=== PATIENT | female | born 1985 | race Caucasian/White ===

== ENCOUNTER 2017-08-17 17:38 | Emergency (ER) | payer OTHER ==
[2017-08-17 17:51] VITALS: BP 126/74; PULSE 100; TEMP 98.1; O2SAT 100
--- NOTE | 2017-08-17 18:27 | C.PDOC ---
History Of Present Illness SP FALL ON 08/12 CO PERSIST R ELBOW PAIN AND SWELLING. PERSIST PAIN WORSE W SUPINATION AND FLEXION. DENIES WEAK NUMB. EXAM NONTOXIC EXT R ELBOW +SWELLING LIMITED ROM REPRODUC PAIN W SUPINATION. SKIN INTACT NO ERYTHEMA NEURO INTACT REMAINDER NEG Time Seen by Provider: 08/17/17 17:45 Chief Complaint (Nursing): Upper Extremity Problem/Injury History Per: Patient History/Exam Limitations: no limitations Onset/Duration Of Symptoms: Days Current Symptoms Are (Timing): Still Present Severity: Moderate Past Medical History Reviewed: Historical Data, Nursing Documentation, Vital Signs Vital Signs: Last Vital Signs Temp 98.1 F 08/17/17 17:49 Pulse 100 H 08/17/17 17:49 Resp 17 08/17/17 18:50 BP 126/74 08/17/17 17:49 Pulse Ox 100 08/17/17 18:32 - Medical History PMH: No Chronic Diseases Surgical History: No Surg Hx Family History: States: No Known Family Hx - Social History Hx Alcohol Use: No Hx Substance Use: No - Immunization History Hx Tetanus Toxoid Vaccination: No Hx Influenza Vaccination: No Hx Pneumococcal Vaccination: No Review Of Systems Except As Marked, All Systems Reviewed And Found Negative. Musculoskeletal: Positive for: Arm Pain (right elbow pain) Neurological: Negative for: Weakness, Numbness Physical Exam - Physical Exam Appears: Non-toxic Skin: Normal Color, Warm, Other (intact, no erythema) Head: Atraumatic, Normacephalic Eye(s): bilateral: Normal Inspection, PERRL Extremity: No Normal ROM (limited rom, reproducible pain with supination), Swelling (swelling in right elbow) Neurological/Psych: Oriented x3, Normal Speech, Normal Cognition, Normal Motor, Normal Sensation, Other (intact) ED Course And Treatment O2 Sat by Pulse Oximetry: 100 (RA) Pulse Ox Interpretation: Normal - Other Rad R ELBOW X-Ray: Interpreted by Me (+RADIAL HEAD FX) Medical Decision Making Medical Decision Making: Plan: --X-Ray - Right Elbow Disposition Counseled Patient/Family Regarding: Studies Performed, Diagnosis, Need For Followup - Disposition Referrals: Dontae Marie MD [Staff Provider] - Disposition: HOME/ ROUTINE Disposition Time: 18:31 Condition: IMPROVED Additional Instructions: you have a radial head fracture. Wear splint continuously. Schedule follow up appointment with orthopedics this week. Prescriptions: Acetaminophen/Codeine [Tylenol/Codeine 300 MG/30 MG] 2 tab PO Q6H #20 tab Ibuprofen [Motrin] 600 mg PO Q6 #30 tab Instructions: Elbow Fracture in Adults (ED) Forms: [facility] ([place]) - Clinical Impression Clinical Impression: Elbow fracture - Scribe Statement The provider has reviewed the documentation as recorded by the Elinibflako Collado Provider Attestation: All medical record entries made by the Scribe were at my direction and personally dictated by me. I have reviewed the chart and agree that the record accurately reflects my personal performance of the history, physical exam, medical decision making, and the department course for this patient. I have also personally directed, reviewed, and agree with the discharge instructions and disposition. Orthopedic Care Application Of:: Long-arm Splint
[2017-08-17 18:51] VITALS: RESP 17
--- NOTE | 2017-08-18 08:12 | RAD ---
PROCEDURE: Radiographs of the right elbow. HISTORY: TRAUMA COMPARISON: No prior. FINDINGS: BONES: There is acute displaced chip fracture with bony fragment seen in the lateral view. The fracture is likely at the proximal portion of the right ulnar bone. JOINTS: No evidence of dislocation. SOFT TISSUES: Normal. JOINT EFFUSION: There is a small joint effusion noted. OTHER FINDINGS: None. IMPRESSION: Suspicious for fracture at the proximal right ulnar bone with displaced bony fragment seen anterior to the right elbow joint. If clinically warranted further assessment by CT is suggested. Small joint effusion.
== END 2017-08-17 18:50 | disposition home or self-care (01) ==
LOC: C.ER 17:38
DX: S52.121A Displaced fracture of head of right radius, initial encounter for closed fracture (principal); W18.30XA Fall on same level, unspecified, initial encounter